=== PATIENT | male | born 1975 | race Caucasian/White ===

== ENCOUNTER → 2019-08-15 | Outpatient (CLI) | payer BC ==
[2019-08-15 18:03] LABS: CREATININE FOR GFR 0.97 MG/DL (0.70-1.30); GLOMERULAR FILTRATION RATE > 60.0 (>60); RHEUMATOID FACTOR QUANT < 10.0 IU/ML (<15.0); URIC ACID 7.2 MG/DL (3.5-7.2)
[2019-08-15 18:10] LABS: BASO # 0.1 10^3/uL (0.0-0.2); BASO % 1.2 % (0.0-1.0); EOS # 0.2 10^3/uL (0.0-0.5); EOS % 3.2 % (0.0-3.0); HEMATOCRIT 46.9 % (42.0-52.0); HEMOGLOBIN 15.6 g/dl (13.5-17.5); LYMPH # 1.4 10^3/uL (1.5-5.0); LYMPH % 23.7 % (24.0-44.0); MEAN CORPUSCULAR HEMOGLOBIN 30.1 pg (27.0-33.0); MEAN CORPUSCULAR HGB CONC 33.3 g/dl (32.0-36.5); MEAN CORPUSCULAR VOLUME 90.4 fl (80.0-96.0); MONO # 0.5 10^3/uL (0.0-0.8); MONO % 7.5 % (0.0-5.0); NEUTROPHILS # 3.8 10^3/uL (1.5-8.5); NEUTROPHILS % 63.7 % (36.0-66.0); PLATELET COUNT, AUTOMATED 226 10^3/uL (150-450); RED BLOOD COUNT 5.19 10^6/uL (4.30-6.10)
[2019-08-15 18:43] LABS: ERYTHROCYTE SEDIMENTATION RATE 3 mm/hr (0-15)
== END ==
LOC: M ADAMS 13:38
PROVIDERS: ATTEND Physician Assistant Surgical
DX: M16.12 Unilateral primary osteoarthritis, left hip (principal)

== ENCOUNTER → 2023-10-10 | Outpatient (CLI) | payer BC | LOC: M RAD 08:23 | PROVIDERS: ATTEND Internal Medicine | DX: Z53.9 Procedure and treatment not carried out, unspecified reason (principal) ==

== ENCOUNTER → 2024-10-31 | Outpatient (REF) | payer BC | LOC: M LAB REF 12:40 | PROVIDERS: ATTEND Internal Medicine | DX: E78.2 Mixed hyperlipidemia (principal) ==

== ENCOUNTER → 2025-02-03 | Outpatient (REF) | payer BC ==
[2025-02-03 13:35] LABS: ESTIMATED AVERAGE GLUCOSE 120.0 MG/DL (60-110)
[2025-02-03 14:01] LABS: CALCIUM LEVEL 9.1 MG/DL (8.5-10.1); CARBON DIOXIDE LEVEL 28 MMOL/L (20-31); CHLORIDE LEVEL 104 MMOL/L (98-107); CHOLESTEROL LEVEL 260 MG/DL (<200); CHOLESTEROL RISK RATIO 5.57 (<5); CREATININE FOR GFR 0.85 MG/DL (0.70-1.30); GLOMERULAR FILTRATION RATE > 90.0 (>56); NON-HDL-C 213.4 MG/DL; POTASSIUM SERUM 4.0 MMOL/L (3.5-5.1); PSA SCREENING 1.63 NG/ML (< 4.00); SODIUM LEVEL 146 MMOL/L (136-145); TRIGLYCERIDES LEVEL 500 MG/DL (<150)
== END ==
LOC: M LAB REF 12:19
PROVIDERS: ATTEND Internal Medicine
DX: E78.5 Hyperlipidemia, unspecified (principal); R73.01 Impaired fasting glucose; R74.01 Elevation of levels of liver transaminase levels; Z80.42 Family history of malignant neoplasm of prostate

== ENCOUNTER → 2025-05-07 | Outpatient (REF) | payer BC ==
[2025-05-07 12:49] LABS: CHOLESTEROL LEVEL 252.0 MG/DL (<200); CHOLESTEROL RISK RATIO 4.75 (<5); LDL CHOLESTEROL 145.4 MG/DL (<100); NON-HDL-C 199.0 MG/DL; TRIGLYCERIDES LEVEL 268.0 MG/DL (<150)
== END ==
LOC: M LAB REF 11:47
PROVIDERS: ATTEND Internal Medicine
DX: E78.5 Hyperlipidemia, unspecified (principal); K75.81 Nonalcoholic steatohepatitis (NASH)